=== PATIENT | female | born 1960 | race Caucasian/White ===

== ENCOUNTER 2017-12-23 09:50 | Emergency (ER) | payer OTHER ==
[2017-12-23 11:44] VITALS: BP 117/71
--- NOTE | 2017-12-23 12:09 | ED ---
GI/ HPI - HPI Summary HPI Summary: 57F presents with dysuria today. has history of utis feels similar. has not had one in 3 years. admits to urgency and frequency. no fever, nausea, or vomiting. no abdominal pain. no vaginal discharge. no medical conditions. no flank pain. no other complaints. has been drinking fluids. - History of Current Complaint Chief Complaint: [facility] Time Seen by Provider: 12/23/17 12:04 Stated Complaint: URINARY Pain Intensity: 0 - Allergy/Home Medications Allergies/Adverse Reactions: Allergies Allergy/AdvReac Type Severity Reaction Status Date / Time No Known Allergies Allergy Verified 12/23/17 11:40 Home Medications: Home Medications Vitamin THERAPEUTIC TAB* [Theragran TAB*] 1 tab PO DAILY 12/23/17 [History Confirmed 12/23/17] PMH/Surg Hx/FS Hx/Imm Hx Endocrine/Hematology History: Denies: Hx Anticoagulant Therapy Cardiovascular History: Denies: Hx Myocardial Infarction Musculoskeletal History: Denies: Hx Rheumatoid Arthritis, Hx Osteoporosis Sensory History: Denies: Hx Contacts or Glasses, Hx Hearing Aid Opthamlomology History: Denies: Hx Contacts or Glasses - Cancer History Hx Chemotherapy: No Hx Radiation Therapy: No - Surgical History Surgery Procedure, Year, and Place: Varicose Veins, 2010, [place] Hx Anesthesia Reactions: No Infectious Disease History: No Infectious Disease History: Denies: Traveled Outside the [place] in Last 30 Days - Family History Known Family History: Negative: Renal Disease - Social History Alcohol Use: Weekly Alcohol Amount: 4 week Substance Use Type: Reports: None Smoking Status (MU): Former Smoker Type: Cigarettes Amount Used/How Often: 1/2 week Length of Time of Smoking/Using Tobacco: 1/2 pack per week x 27 Years Have You Smoked in the Last Year: No Review of Systems Negative: Fever Negative: Chest Pain Negative: Shortness Of Breath Positive: dysuria All Other Systems Reviewed And Are Negative: Yes Physical Exam Triage Information Reviewed: Yes Vital Signs On Initial Exam: Initial Vitals Temp Pulse Resp BP Pulse Ox 98.2 F 82 16 117/71 100 12/23/17 11:38 12/23/17 11:38 12/23/17 11:38 12/23/17 11:38 12/23/17 11:38 Vital Signs Reviewed: Yes Appearance: Positive: Well-Appearing Skin: Positive: Warm, Dry Head/Face: Positive: Normal Head/Face Inspection Eyes: Positive: Normal, Conjunctiva Clear ENT: Positive: Pharynx normal Respiratory/Lung Sounds: Positive: Clear to Auscultation, Breath Sounds Present Cardiovascular: Positive: Normal, RRR Abdomen Description: Positive: Nontender, Soft Bowel Sounds: Positive: Present Musculoskeletal: Positive: Normal Neurological: Positive: Normal Psychiatric: Positive: Normal Diagnostics - Vital Signs Vital Signs Temp Pulse Resp BP Pulse Ox 12/23/17 11:38 98.2 F 82 16 117/71 100 - Laboratory Lab Results: Lab Results 12/23/17 Range/Units 11:49 POC Urine Color Not entered POC Urine Clarity Slightly cloudy POC Urine pH 7.0 (5-9) POC Ur Specif [place] 1.010 (1.010-1.030) POC Urine Protein Negative (Negative) POC Ur Glucose (UA) Negative (Negative) POC Urine Ketones Negative (Negative) POC Urine Blood 1+ A (Negative) POC Urine Nitrite Negative (Negative) POC Urine Bilirubin Negative (Negative) POC Urine Urobilinogen 0.2 (Negative) POC U Leukocyte Esteras 3+ A (Negative) Lab Statement: Any lab studies that have been ordered have been reviewed, and results considered in the medical decision making process. GIGU Course/Dx - Course Course Of Treatment: 57F presents with dysuria today. has history of utis feels similar has not had one in 3 years. no fever, nausea, or vomiting. no abdominal pain. no vaginal discharge. no medical conditions. no flank pain. on exam nontender abdomen. urine shows +3 leuks. will treat with cipro. patient understand and agrees with plan. - Diagnoses Differential Diagnoses - Female: Urinary Tract Infection, Ureteral Calculi, Vaginitis Provider Diagnoses: UTI (urinary tract infection) Discharge - Sign-Out/Discharge Documenting (check all that apply): Discharge/Admit/Transfer - Discharge Plan Condition: Good Disposition: HOME Prescriptions: Ciprofloxacin TAB* [Cipro 500 MG TAB*] 500 mg PO BID #10 tab Phenazopyridine 200 mg (NF) [Pyridium 200 MG tab *] 200 mg PO TID #6 tab Patient Education Materials: Urinary Tract Infection in Women (ED) Referrals: Leticia Carter MD [Primary Care Provider] - Additional Instructions: Take cipro twice a day for 5 days Take pyridium one tablet three times a day with food for 2 days drink plenty of fluids Follow up with primary within 5 days Return to ED if develop fever, severe abdominal pain, nausea, or vomiting or any new or worsening symptoms - Billing Disposition and Condition Condition: GOOD Disposition: Home
--- NOTE | 2017-12-24 15:19 | UC ---
- Progress Note Progress Note: + E. Coli Pt on cipro await sensitivity no change [facility] 12/24/3017 Course/Dx - Diagnoses Provider Diagnoses: UTI (urinary tract infection) Discharge - Sign-Out/Discharge Documenting (check all that apply): Post-Discharge Follow Up - Discharge Plan Condition: Good Disposition: HOME Prescriptions: Ciprofloxacin TAB* [Cipro 500 MG TAB*] 500 mg PO BID #10 tab Phenazopyridine 200 mg (NF) [Pyridium 200 MG tab *] 200 mg PO TID #6 tab Patient Education Materials: Urinary Tract Infection in Women (ED) Referrals: Leticia Carter MD [Primary Care Provider] - Additional Instructions: Take cipro twice a day for 5 days Take pyridium one tablet three times a day with food for 2 days drink plenty of fluids Follow up with primary within 5 days Return to ED if develop fever, severe abdominal pain, nausea, or vomiting or any new or worsening symptoms - Billing Disposition and Condition Condition: GOOD Disposition: Home
== END 2017-12-23 12:17 | disposition home or self-care (01) ==
LOC: UCCORT 09:50
DX: B96.20 Unspecified Escherichia coli [E. coli] as the cause of diseases classified elsewhere (principal)
CPT/HCPCS: 81003; 87077; 87086; 87186; 99212; G0463